=== PATIENT | female | born 1940 | race Caucasian/White ===

== ENCOUNTER 2020-06-20 09:52 | Outpatient (CLI) | payer MEDICARE, SELFPAY ==
--- NOTE | ~2020-06-20 | MM_ITS ---
EXAMINATION: MM screening [facility] BI w jayla HISTORY: Screening mammogram TECHNIQUE: Craniocaudal and mediolateral oblique 3-D tomosynthesis images were obtained and synthetic 2-D images were generated. CAD analysis was submitted and interpreted. COMPARISON: 10/03/2018, 06/15/2017, 04/09/2016 bilateral digital screening mammogram examinations BREAST PARENCHYMAL COMPOSITION: There are scattered areas of fibroglandular density. FINDINGS: There is no evidence of suspicious mass, calcification, or architectural distortion to sugg est malignancy in either breast. There has been no suspicious interval change. IMPRESSION: 1. No mammographic evidence of malignancy. 2. Recommend routine screening mammography in one year. BI-RADS Category 1: Negative Reviewed, dictated and finalized at location A.
--- NOTE | ~2020-06-20 | DEXA_ITS ---
Bone Density Report Name: Carito Valdes Age: 80 Sex: Female Ethnicity: White Date of : 1940 Indication: postmenopausal; height loss; Referring Provider: Alondra, Maxi Gunter Study: Bone densitometry was performed. Exam Date: June 20, 2020 Accession number: [id number] Bone Density: Region BMD T-score Z-score Classification AP Spine (L1, L2, L3) 1.249 2.1 4.8 Normal World Health Organization criteria for BMD impression classify patients as: Normal (T-score at or above -1.0), Osteopenia (T-score between -1.0 and -2.5), or Osteoporosis (T-score at or below -2.5). Previous Exams: Region Exam Age BMD T-score BMD Change BMD Change Date g/cm2 vs Baseline vs Previous AP Spine(L1, L2, L3) 06/20/2020 80 1.249 2.1 0.120(10.6%)# 0.062(5.2%)* 03/13/2015 74 1.187 1.5 0.058(5.1%)# 0.058(5.1%)# 07/09/2009 69 1.129 1.0 *Denotes significance at 95% confidence level, LSC for AP Spine = 0.022 g/cm2 Clinical Information Provided by Patient: Has used the following medications: Vitamin D Patient maximum height was 64 Menopause Age: 54 No regular weight bearing exercise Drinks caffeinated beverages Onset of menses at age 12 Number of children 1 Impression: The patient has normal bone mass. No significant bone loss was observed. Discussion: LOW RISK OF FRACTURE; BONE DENSITY IS WELL ABOVE THE MINIMUM DESIRABLE LEVEL AND ABOVE AVERAGE FOR AGE AND SEX AT ALL SKELETAL SITES TESTED. This person's bone density is above expected limits for age and sex. This is rarely clinically significant, but should be pursued if there are significant musculoskeletal complaints. The patient should follow a healthful lifestyle (good nutrition with adequate calcium and vitamin D, and appropriate weight-bearing exercise). Follow-Up: Consider repeating this study in 5 years or sooner if there is some new clinical indication. Reported by: KELLY on 06/20/2020 10:30:00 AM. Reviewed, dictated and finalized at location AAnirudh [facility]Jonathan
== END 2020-06-20 09:53 | disposition home or self-care (01) ==
PROVIDERS: PCP Internal Medicine; Visit Provider Physician Assistant
DX: M81.8 Other osteoporosis without current pathological fracture (principal); M89.9 Disorder of bone, unspecified; I10 Essential (primary) hypertension; R73.02 Impaired glucose tolerance (oral); Z12.31 Encounter for screening mammogram for malignant neoplasm of breast
CPT/HCPCS: 77063; 77067; 77080

== ENCOUNTER 2022-04-22 10:04 | Outpatient (CLI) | payer MEDICARE, SELFPAY ==
--- NOTE | ~2022-04-22 | MM_ITS ---
EXAMINATION: MM screening [facility] BI w jayla HISTORY: Screening TECHNIQUE: Craniocaudal and mediolateral oblique 3-D tomosynthesis images were obtained and synthetic 2-D images were generated. CAD analysis was submitted and interpreted. COMPARISON: Comparison to multiple prior studies sequentially, with oldest reviewed study dated 12/2013. BREAST PARENCHYMAL COMPOSITION: There are scattered areas of fibroglandular density. FINDINGS: There is no evidence of suspicious mass, calcification, or architectural distortion to sugg est malignancy in either breast. There has been no suspicious interval change. IMPRESSION: 1. No mammographic evidence of malignancy. 2. Recommend routine screening mammography in one year. BI-RADS Category 1: Negative Reviewed, dictated and finalized at location A.
== END 2022-04-22 10:05 | disposition home or self-care (01) ==
PROVIDERS: PCP Physician Assistant; Visit Provider Physician Assistant
DX: Z12.31 Encounter for screening mammogram for malignant neoplasm of breast (principal)
CPT/HCPCS: 77063; 77067

== ENCOUNTER 2022-07-16 15:23 | Outpatient (CLI) | payer MEDICARE, SELFPAY ==
--- NOTE | ~2022-07-16 | DEXA_ITS ---
Bone Density Report Name: JO YODER Age: 82 Sex: Female Ethnicity: White Date of : 1940 Indication: postmenopausal; screening for osteoporosis; height loss; Referring Provider: RACHELL, JUDI Gunter Study: Bone densitometry was performed. Exam Date: July 16, 2022 Accession number: [id number] Bone Density: Region BMD T-score Z-score Classification AP Spine(L1-L4) 1.329 2.6 5.4 Normal World Health Organization criteria for BMD impression classify patients as: Normal (T-score at or above -1.0), Osteopenia (T-score between -1.0 and -2.5), or Osteoporosis (T-score at or below -2.5). Clinical Information Provided by Patient: Has used the following medications: Vitamin D Patient maximum height was 64 Menopause Age: 54 Drinks caffeinated beverages Onset of menses at age 12 Number of children 1 Impression: The patient has normal bone mass. Discussion: LOW RISK OF FRACTURE; BONE DENSITY IS WELL ABOVE THE MINIMUM DESIRABLE LEVEL AND ABOVE AVERAGE FOR AGE AND SEX AT ALL SKELETAL SITES TESTED. This person's bone density is above expected limits for age and sex. This is rarely clinically significant, but should be pursued if there are significant musculoskeletal complaints. The patient should follow a healthful lifestyle (good nutrition with adequate calcium and vitamin D, and appropriate weight-bearing exercise). Follow-Up: Consider repeating this study in 5 years or sooner if there is some new clinical indication. Reported by: KIT on 07/16/2022 3:46:00 PM. Reviewed, dictated and finalized at location Homero LOPEZ
== END 2022-07-16 15:24 | disposition home or self-care (01) ==
PROVIDERS: PCP Physician Assistant; Visit Provider Physician Assistant
DX: Z78.0 Asymptomatic menopausal state (principal)
CPT/HCPCS: 77080

== ENCOUNTER 2024-04-18 14:56 | Outpatient (CLI) | payer MEDICARE, SELFPAY ==
--- NOTE | ~2024-04-18 | MM_ITS ---
EXAMINATION: MM screening [facility] BI w jayla HISTORY: Screening TECHNIQUE: Craniocaudal and mediolateral oblique 3-D tomosynthesis images were obtained and synthetic 2-D images were generated. CAD analysis was submitted and interpreted. COMPARISON: Comparison to multiple prior studies sequentially, with oldest reviewed study dated 03/13. BREAST PARENCHYMAL COMPOSITION: Not dense: There are scattered areas of fibroglandular density. FINDINGS: There is developing asymmetry in the upper central aspect of the right breast There is no e vidence of suspicious mass, calcification, or architectural distortion to suggest malignancy in eithe r breast. There has been no suspicious interval change. IMPRESSION: 1. Developing right breast asymmetry. 2. Additional mammographic views and possible breast ultrasound are recommended. BI-RADS Category 0: Incomplete: Needs additional imaging evaluation. Reviewed, dictated and finalized at location B. IMPRESSION: 1. Developing right breast asymmetry. 2. Additional mammographic views and possible breast ultrasound are recommended . BI-RADS Category 0: Incomplete: Needs additional imaging evaluation.
== END 2024-04-18 14:57 | disposition home or self-care (01) ==
LOC: ANHIMG 14:58
PROVIDERS: PCP Physician Assistant; Visit Provider Obstetrics & Gynecology
DX: Z12.31 Encounter for screening mammogram for malignant neoplasm of breast (principal); R92.8 Other abnormal and inconclusive findings on diagnostic imaging of breast
CPT/HCPCS: 77063; 77067

== ENCOUNTER 2024-05-11 11:08 | Outpatient (CLI) | payer MEDICARE, SELFPAY ==
--- NOTE | ~2024-05-11 | MM_ITS ---
EXAMINATION: MM diagnostic [facility] RT w jayla HISTORY: Questionable right breast mass TECHNIQUE: Additional 3-D tomosynthesis images of the right breast were performed and synthetic 2-D i mages were generated. CAD analysis was submitted and interpreted. COMPARISON: 04/18/2024 BREAST PARENCHYMAL COMPOSITION:Not Dense. There are scattered areas of fibroglandular density. FINDINGS: There area of increased density effaces with spot compression. No persistent mass lesion or distortion seen. No suspicious microcalcification. IMPRESSION: No mammographic evidence for malignancy. BI-RADS Category 1: Negative Reviewed, dictated and finalized at location .
== END 2024-05-11 11:09 | disposition home or self-care (01) ==
LOC: ANHIMG 11:09
PROVIDERS: PCP Physician Assistant; Visit Provider Obstetrics & Gynecology
DX: N64.89 Other specified disorders of breast (principal)
CPT/HCPCS: 77061; 77065; G0279

== ENCOUNTER 2024-06-02 10:47 | Outpatient (CLI) | payer MEDICARE, SELFPAY ==
--- NOTE | ~2024-06-02 | XR_ITS ---
Right Knee Technique: AP, lateral, and sunrise views were obtained. Clinical History: Arthritis Findings: No fracture or dislocation is seen. There is advanced tricompartmental degenerative change. There is lateral compartment narrowing with remodeling of the lateral tibial plateau. Prominent oste ophyte formation present throughout the knee. Small joint effusion is seen. Impression: Advanced tricompartmental osteoarthritis, as detailed above. Reviewed, dictated and finalized at location M. Impression: Advanced tricompartmental osteoarthritis, as detailed above.
== END 2024-06-02 10:48 | disposition home or self-care (01) ==
PROVIDERS: PCP Physician Assistant; Visit Provider Physical Medicine & Rehabilitation Pain Medicine
DX: M17.11 Unilateral primary osteoarthritis, right knee (principal)
CPT/HCPCS: 73564

== ENCOUNTER 2025-06-26 13:37 | Outpatient (CLI) | payer MEDICARE, SELFPAY ==
--- NOTE | ~2025-06-26 | DEXA_ITS ---
Bone Density Report Name: JO YODER Age: 85 Sex: Female Ethnicity: White Date of : 1940 Indication: postmenopausal; screening for osteoporosis; height loss; prior fracture; Referring Provider: RACHELL, JUDI Gunter Study: Bone densitometry was performed. Exam Date: June 26, 2025 Accession number: [id number] Bone Density: Region BMD T-score Z-score Classification AP Spine(L1, L2, L3) 1.235 2.0 4.8 Normal World Health Organization criteria for BMD impression classify patients as: Normal (T-score at or above -1.0), Osteopenia (T-score between -1.0 and -2.5), or Osteoporosis (T-score at or below -2.5). Previous Exams: Region Exam Age BMD T-score BMD Change BMD Change Date g/cm2 vs Baseline vs Previous AP Spine (L1-L3) 06/26/2025 85 1.235 2.0 0.048 (4.0%)* -0.077 (-5.9%) 07/16/2022 82 1.312 2.7 0.125 (10.5%)* 0.063 (5.0%)* 06/20/2020 80 1.249 2.1 0.062 (5.2%)* 0.062 (5.2%)* 03/13/2015 74 1.187 1.5 *Denotes significance at 95% confidence level, LSC for AP Spine = 0.022 g/cm2 Clinical Information Provided by Patient: Have had a previous hip or vertebral fracture Has had a low trauma fracture Has used the following medications: Vitamin D Patient maximum height was 64 Menopause Age: 54 No regular weight bearing exercise Drinks caffeinated beverages Onset of menses at age 12 Number of children 1 Impression: The patient has normal bone mass. The patient has risk factors, including: previous fracture. The BMD for the AP Spine (L1-L3) decreased, changing by -5.9% since the last DXA exam. Discussion: INCREASED RISK OF FRACTURE DUE TO HISTORY OF FRACTURE. The patient's previous fracture puts the patient at high risk of a future fracture. In untreated patients, the risk of osteoporotic fracture increases approximately two-fold for each 1.0 SD decrease in T-score. Low bone density is not the only risk factor for fracture; also consider factors such as patient's age, frailty or poor health, risk of falling, risk of injury, previous osteoporotic fracture, family history of osteoporosis, cigarette smoking, low body weight, etc. Not everyone with a low trauma fracture has osteoporosis; osteomalacia and other metabolic bone disorders should also be considered. Patients who have osteoporosis should be evaluated for specific diseases and conditions (secondary causes) that may cause or contribute to bone loss and fracture risk. National Osteoporosis Foundation (NOF) recommends pharmacologic intervention for patients with a prior hip or vertebral fracture regardless of BMD T-score. The patient should follow a healthful lifestyle (good nutrition with adequate calcium and vitamin D, and appropriate weight-bearing exercise). Follow-Up: Consider a repeat BMD and Vertebral Fracture Assessment (VFA) exam in 2 years or sooner if medically necessary, to reassess this patient's status. Reported by: KIT on 06/26/2025 2:34:00 PM. Reviewed, dictated and finalized at location A.
--- NOTE | ~2025-06-26 | MM_ITS ---
EXAMINATION: MM screening [facility] BI w jayla HISTORY: Screening TECHNIQUE: Craniocaudal and mediolateral oblique 3-D tomosynthesis images were obtained and synthetic 2-D images were generated. CAD analysis was submitted and interpreted. COMPARISON: Comparison to multiple prior studies sequentially, with oldest reviewed study dated 04/22/2022. BREAST PARENCHYMAL COMPOSITION: Not dense: There are scattered areas of fibroglandular density. FINDINGS: There is no evidence of suspicious mass, calcification, or architectural distortion to suggest malignancy in either breast. There has been no suspicious interval change. IMPRESSION: 1. No mammographic evidence of malignancy. 2. Recommend routine screening mammography in one year. BI-RADS Category 1: Negative Reviewed, dictated and finalized at location B.
== END 2025-06-26 13:38 | disposition home or self-care (01) ==
LOC: ANHFOHIMG 13:39
PROVIDERS: PCP Physician Assistant; Visit Provider Physician Assistant
DX: Z12.31 Encounter for screening mammogram for malignant neoplasm of breast (principal); M81.0 Age-related osteoporosis without current pathological fracture
CPT/HCPCS: 77063; 77067; 77080